=== PATIENT | female | born 1975 | race Caucasian/White ===

== ENCOUNTER 2016-11-14 19:50 | Emergency (ER) | payer OTHER ==
[~2016-11-14] VITALS: Ht 154.9 cm; Wt 50.0 kg
[2016-11-14 19:54] VITALS: BP 146/101; PULSE 105; RESP 18; O2SAT 96
--- NOTE | 2016-11-14 21:35 | ED.REPORT ---
HPI-Rash / Abscess Date of Service Nov 14, 2016 ED Provider: Amari Hill MD A 41 year old female with a history of alcohol abuse, endometriosis and asthma presents to the ED complaining of a spider bite to the left hand that first appeared 2 weeks ago. She is currently expressing concern because of increased swelling, worsening arm pain, subjective fever and general malaise. Patient has taken Advil and used ice for the pain and swelling with little relief. Patient admits to taking 4 shots of vodka this afternoon and typically drinks between 6- 8 shots of hard liquor per day. She is currently seeking referral to a detox program. Nursing Notes Stated Complaint: BITE BY SPIDER,LEFT HAND Chief Complaint: Skin Rash/Abscess Nursing Notes Reviewed: Yes Allergies: Uncoded Allergies: PENICILLIN (Allergy, Unknown, 11/14/16) General Time Seen by MD: 21:25 Chief Complaint Other (Insect Bite) Hx Obtained From: Patient Arrived By: Walk-in Onset Occurred: More than a week ago... (2 weeks) Symptom Duration: Since onset Location: : Hand Quality: Painful Severity: Current: Mild Severity: Maximum: Mild Associated with: Reports Fever Pertinent Negative: Pt denies other symptoms Recent Healthcare: No recent doctor visit, No recent hospitalization Past Medical History Past Medical History Endometriosis Asthma Past Surgical History Left arm fracture repair Smoking History Unknown if Ever Smoker Social History Alcohol Use: >5 per day (6-8 per day) Drug Use: THC Other Social History: , Local resident Ambulatory Status Independent Review of Systems +spider bite Constitutional: Reports: Fever (subjective), Malaise Respiratory: Denies: Shortness of breath Musculoskeletal: Reports: Extremity pain (Left arm pain) Skin: Reports Swelling Complete sys rev & neg: except as marked. Physical Exam Initial Vital Signs Vital Signs (First) Date Time Temp Pulse Resp B/P Pulse Ox O2 Delivery O2 Flow Rate FiO2 11/14/16 19:54 36.4 105 18 146/101 96 Room Air Initial VS: Reviewed, Vital signs abnormal Neck: Supple, Non-tender, Full range of motion Neurologic: Alert, Oriented, Nonfocal Psychiatric: Mood/affect normal, Behavior normal, Normal thought content General/Constitutional: Awake, Alert, No acute distress Skin: Atraumatic, Color NL, Warm, Dry Rash / Lesion Notes: Small area of erythema consistent with insect bite with swelling and tendeness to the distal aspect of the forearm Rash / Lesion Location: Positive: Forearm L, Wrist L Well healing surgical scar at the base of the left forearm Head / Eyes: Atraumatic, Normocephalic, PERRL Respiratory / Chest: Atraumatic, Breath sounds NL, Breath sounds = bilat, No respiratory distress Cardiovascular: Heart rate NL, Regular rhythm, Heart sounds NL Upper Extremity / MS: Neurologic intact, Vascular intact Lower Extremity / Pelvis / MS: Neurologic intact, Vascular intact Re-Eval/Medical Decision Med Decision/Clinical Course 1-year-old female with 2 problems, possible cellulitis from an insect bite treated with trimethoprim sulfamethoxazole and alcohol dependence. She was given options for treatment Re-Evaluation/Progress : Time of Eval: 21:40 Patient Status: Condition improved Re-Evaluation/Progress Note: Patient is re-checked. All questions are addressed. She is informed of her results and diagnosis. The patient understands and agrees with the intended treatment plan. Counseled Regarding: Diagnosis, Need for follow-up, When/why to return to ED Discharge & Departure Impression: Primary Impression: Cellulitis Site of cellulitis: extremity Site of cellulitis of extremity: upper extremity Laterality: right Qualified Code: L03.113 - Cellulitis of right upper limb Disposition: Home Discharge Condition All VS Reviewed: Yes Condition: Improved Patient Instructions: Abuse of Alcohol (ED), Insect Bite or Sting (ED) Additional Instructions: 1. Possible infection at the site of the insect bite. Septra DS 1 orally twice daily, #20 dispensed. Follow-up as needed for worsening symptoms. 2. Alcohol dependence. Contact [facility] at [phone] due telephone prescreening. They will talk to about your options and when a bed is available. You can also contact [facility], [facility], or [facility] for outpatient treatment of alcohol dependence. Additional Resource: [facility] Referrals: [facility] (PCP) [facility] Alcoholics Anonymous (AA) [facility] Scribe Attestation Portions of this note were transcribed by Georges Deras. I, Dr. Hill personally performed the history, physical exam and medical decision-making; I reviewed and confirmed the accuracy of the information in the transcribed note. Amari Hill MD Nov 14, 2016 21:35 GEORGES DERAS Nov 14, 2016 21:42
[2016-11-14 22:30] VITALS: BP 120/89; PULSE 69; RESP 16; O2SAT 94
[2016-11-15] MEDS ORDERED: _Trimethoprim-Sulfa 160/800 mg Tablet PO SCH (08:30)
== END 2016-11-14 22:33 | disposition home or self-care (01) ==
LOC: SED 19:50
DX: L03.114 Cellulitis of left upper limb (principal); W57.XXXA Bitten or stung by nonvenomous insect and other nonvenomous arthropods, initial encounter; Y93.9 Activity, unspecified; Y92.9 Unspecified place or not applicable; Y99.8 Other external cause status; J45.909 Unspecified asthma, uncomplicated; Z88.0 Allergy status to penicillin